=== PATIENT | female | born 1995 | race Caucasian/White ===

== ENCOUNTER 2020-12-24 18:22 | Emergency (ER) | payer SELFPAY ==
[~2020-12-24] VITALS: Ht 152.4 cm; Wt 47.6 kg
[2020-12-24 18:38] LABS: Source, Urine Clean Catch
[2020-12-24 18:52] LABS: Appearance, Urine Hazy (Clear); Bilirubin, Urine Neg (Neg); Blood, Urine 5+ (Neg); Color, Urine Amber (P-Yellow); Glucose Qualitative, Urine Neg (Neg); Ketones, Urine Neg (Neg); Leukocyte Esterase, Urine 3+ (Neg); Nitrite, Urine Neg (Neg); Protein, Urine 3+ (Neg); Urobilinogen, Urine NORM (Normal); pH, Urine 6.5 (5.0-8.0)
[2020-12-24 19:23] LABS: White Blood Cells, Urine 50-100 /hpf (0-5)
[2020-12-24 19:24] LABS: Bacteria Mod /hpf; Squamous Epithelial Cells Mod /hpf (Few)
[2020-12-24] MEDS ORDERED: Macrobid 100 M100 MG PO (19:43)
== END 2020-12-24 19:43 | disposition home or self-care (01) ==
LOC: ER 18:22
PROVIDERS: Physician Assistant
DX: N39.0 Urinary tract infection, site not specified (principal); Z88.0 Allergy status to penicillin
CPT/HCPCS: 81001; 81025; 87086; 99283